=== PATIENT | female | born 1990 | race Hispanic/Latino ===

== ENCOUNTER 2016-08-02 07:53 | Emergency (ER) | payer OTHER ==
[2016-08-02 08:06] VITALS: BMI 21.6
[2016-08-02 08:07] VITALS: BP 105/65; PULSE 80; RESP 18; TEMP 98.4; O2SAT 100
[2016-08-02] MEDS ORDERED: TDAP Vaccine 0.5 mL Syr IM ONE (08:15)
[2016-08-02] MEDS ORDERED: Amoxicillin-Clav 875-125 mg Tab PO ONE (08:19)
[2016-08-02] MEDS ORDERED: Lidocaine 2% Inj (20ml) IJ ONE (08:32)
[2016-08-02] MEDS ORDERED: Lidocaine 2% Inj (20ml) ONE (08:38)
--- NOTE | 2016-08-02 08:40 | ED PDOC ---
Lower Extremity Pain/Injury Time Seen by Provider: 08/02/16 08:11 Chief Complaint (Nursing): Lower Extremity Problem/Injury Chief Complaint (Provider): RT knee LAC History Per: Patient History/Exam Limitations: no limitations Onset/Duration Of Symptoms: Hrs Current Symptoms Are (Timing): Still Present Severity: Mild Additional Complaint(s): Patient is a 26 year old female presenting to the ED complaining of laceration to the right knee status post mechanical fall at 4:00 earlier today. Patient reports she tripped and fell injuring her right knee. Patient sustained a laceration to the anterior patella of the right knee and overnight persistent bleeding prompted her ER visit. Denies any other injuries. Denies any distal pain to the leg or foot. PMD: none - Knee Description Of Injury: Fell, Laceration Past Medical History Reviewed: Historical Data, Nursing Documentation, Vital Signs Vital Signs: Last Vital Signs Temp 98.4 F 08/02/16 08:06 Pulse 80 08/02/16 08:06 Resp 18 08/02/16 08:06 BP 105/65 08/02/16 08:06 Pulse Ox 100 08/02/16 08:06 - Medical History PMH: No Chronic Diseases - Surgical History Surgical History: No Surg Hx - Family History Family History: States: No Known Family Hx - Home Medications Home Medications: Ambulatory Orders Medication Instructions Recorded Amoxicillin/Clavulanate [Augmentin 1 tab PO BID #10 tab 08/02/16 875 MG-125 MG] - Allergies Allergies/Adverse Reactions: Allergies Allergy/AdvReac Type Severity Reaction Status Date / Time No Known Allergies Allergy Verified 08/02/16 08:15 Review of Systems ROS Statement: Except As Marked, All Systems Reviewed And Found Negative Cardiovascular: Negative for: Chest Pain Musculoskeletal: Positive for: Other (rt knee LAC) Physical Exam - Reviewed Nursing Documentation Reviewed: Yes Vital Signs Reviewed: Yes - Physical Exam Appears: Positive for: Well, Non-toxic, No Acute Distress Head Exam: Positive for: ATRAUMATIC, NORMAL INSPECTION, NORMOCEPHALIC Skin: Positive for: Normal Color, Warm, DRY Eye Exam: Positive for: EOMI, Normal appearance, PERRL Neck: Positive for: Normal, Painless ROM Extremity: Positive for: Normal ROM, Other (3cm linear LAC on the central patella with mild venous bleeding) Neurologic/Psych: Positive for: Alert, Oriented - ECG O2 Sat by Pulse Oximetry: 100 (RA) Pulse Ox Interpretation: Normal Medical Decision Making Medical Decision Making: Time: 8:15 Impression: LAC repair Plan: XR r/o foreign body Irrigate and repair wound Tetanus and Augmentin- due to somewhat delayed wound expose. Patient is at higher risk of infection. XR Right Knee Augmentin 1 tab PO Lidocaine 2% 4 ml INJ TDAP Vaccine 0.5 ml IM 9;30 XR shows no foreign bodies. Wound irrigated with 250 cc of water. 4 nylon 3.0 sutures placed. Re-evaluation. Patient feels better. Discussed results and plan with patient who expresses understanding. Counseling was provided regarding the diagnosis and prognosis. All questions answered and there is agreement with the plan to discharge home with instructions. Patient stable for discharge. Return if symptoms persist or worsen. Scribe Attestation: Documented by Preet Garcia acting as a scribe for Denzel Mackey MD. Scribe Attestation: All medical record entries made by the Scribe were at my direction and personally dictated by me. I have reviewed the chart and agree that the record accurately reflects my personal performance of the history, physical exam, medical decision making, and the department course for this patient. I have also personally directed, reviewed, and agree with the discharge instructions and disposition. Disposition - Clinical Impression Clinical Impression: Leg laceration - Patient ED Disposition Is Patient to be Admitted: No Counseled Patient/Family Regarding: Studies Performed, Diagnosis - Disposition Referrals: [facility] [Provider Group] [facility] [Provider Group] Disposition: Routine/Home Disposition Time: 09:32 Condition: STABLE Additional Instructions: Followup for suture removal in 7-8 days. DO NOT HYPERFLEX KNEE, YOU RUN THE RISK OF SUTURES RUPTURING AND INFECTION DEVELOPING. Use bacitracin 2x daily for 5 days. Do not submerse in water for 7 days. Use augmentin 2x daily for 5 days. Prescriptions: Amoxicillin/Clavulanate [Augmentin 875 MG-125 MG] 1 tab PO BID #10 tab Instructions: Care For Your Stitches (ED), Laceration (ED) Forms: [employer] (E[place]) Laceration - Laceration Repair No standard instances Wound Length (In cm): 3.0 Description Of Wound: Linear Wound Cleansed With: Sterile Saline (250 cc) Anesthesia: Lidocaine 2% Wound Examination: Irrigated With Saline Wound Closure: Suture (x4) Suture Technique And Material Used: Interrupted, Nylon (3.0) Wound Complexity: Simple
[2016-08-02] MEDS ORDERED: Amoxicillin-Clav 875-125 mg Tab PO SCH (09:00)
--- NOTE | 2016-08-02 10:03 | RAD ---
PROCEDURE: Right Knee Radiographs. HISTORY: patellar laceration ro FB or injury COMPARISON: None. FINDINGS: BONES: Normal. No fracture. JOINTS: Normal. No osteoarthritis. JOINT EFFUSION: None. OTHER FINDINGS: No radiopaque foreign bodies are identified. IMPRESSION: No acute fractures. If symptoms persist consider repeat radiographs in 7-10 days as most fractures should become radiographically evident this timeframe. . . No radiopaque foreign body seen.
== END 2016-08-02 10:16 | disposition home or self-care (01) ==
LOC: H.ER 07:53
DX: S81.011A Laceration without foreign body, right knee, initial encounter (principal); W19.XXXA Unspecified fall, initial encounter; Y92.89 Other specified places as the place of occurrence of the external cause